=== PATIENT | female | born 2005 | race Two or more races ===

== ENCOUNTER 2025-10-05 09:37 | Emergency (ER) | payer MEDICAID, OTHER ==
[~2025-10-05] VITALS: Ht 170.2 cm; Wt 62.0 kg
--- NOTE | 2025-10-05 09:50 | ED.PDOC ---
Altered Mental Status HPI Comments 20-year-old female presents to the ED status post syncopal episode today. Patient was labor and delivery working, became nauseous and lost consciousness with positive head injury. Patient was assisted up by coworkers. Once patient regained consciousness, she denied any nausea, vomiting, fever, chills, or possible . There was no neck, back, or other extremity tenderness. Patient has full range of motion on all extremities. Chief Complaint: Syncope Time Seen by MD: 09:49 Reviewed Notes: Nurses Notes, Medications, Allergies Allergies: Coded Allergies: NO KNOWN ALLERGIES (Unverified , 10/05/25) Information Source: Patient Mode of Arrival: Wheelchair Severity: Moderate Timing: Minutes Duration: Since onset Quality: Decreased Alertness, Change in Behavior Recent: Nausea History of: None Associated Signs and Symptoms: None Past Medical History PAST MEDICAL HISTORY: Denies Surgical History: Denies all surgeries LEAD MACHINIST History: No Pertinent LEAD MACHINIST History Family History Family History: Reviewed,noncontributory to illness, No family hx of Cancer, No family hx of DM, No family hx of Heart taz, No family hx of HTN, No family hx ofKidney taz, No family hx of Liver taz, No family hx of Lung taz, No family hx of Stroke Social History Smoker: Non-Smoker Alcohol: Denies ETOH Use Drugs: Denies Drug Use Lives In: Home Constitutional: denies: chills, diaphoresis, fatigue, fever, malaise, sweats, weakness, others EENTM: denies: blurred vision, double vision, ear bleeding, ear discharge, ear drainage, ear pain, ear ringing, eye pain, eye redness, hearing loss, mouth pain, mouth swelling, nasal discharge, nose bleeding, nose congestion, nose pain, photophobia, tearing, throat pain, throat swelling, voice changes, others Respiratory: denies: cough, hemoptysis, orthopnea, SOB at rest, shortness of breath, SOB with excertion, stridor, wheezing, others Cardiovascular: reports: syncope; denies: chest pain, dizzy spells, diaphoresis, Dyspnea on exertion, edema, irregular heart beat, left arm pain, lightheadedness, palpitations, PND, others Gastrointestinal: reports: nausea; denies: abdomen distended, abdominal pain, blood streaked bowels, constipated, diarrhea, dysphagia, difficulty swallowing, hematemesis, melena, poor appetite, poor fluid intake, rectal bleeding, rectal pain, vomiting, others Genitourinary: denies: abnormal vagina bleeding, burning, dyspareunia, dysuria, flank pain, frequency, hematuria, incontinence, pain, , vagina discharge, urgency, others Neurological: denies: dizziness, fainting, headache, left sided numbness, left sided weakness, numbness, paresthesia, pre-existing deficit, right sided numbness, right sided weakness, seizure, speech problems, tingling, tremors, weakness, others Musculoskeletal: denies: back pain, gout, joint pain, joint swelling, muscle pain, muscle stiffness, neck pain, others Integumetry: denies: bruises, change in color, change in hair/nails, dryness, laceration, lesions, lumps, rash, wounds, others Allergic/Immunocompromised: denies: Difficulty Healing, Frequent Infections, Hives, Itching, others Hematologic/Lymphatic: denies: anemia, blood clots, easy bleeding, easy bruising, swollen glands, others Endocrine: denies: excessive hunger, excessive sweating, excessive thirst, excessive urination, flushing, intolerance to cold, intolerance to heat, unexp lained weight gain, unexplained weight loss, others Psychiatric: denies: anxiety, bipolar disorder, depression, hopeless, panic disorder, schizophrenia, sleepless, suicidal, others All Other Systems: Reviewed and Negative Physical Exam General Appearance: Moderate Distress HEENT: Normal ENT Inspection, Pharynx Normal, TMs Normal Neck: Full Range of Motion, Non-Tender, Normal, Normal Inspection Respiratory: Chest Non-Tender, Lungs Clear, No Accessory Muscle Use, No Respiratory Distress, Normal Breath Sounds Cardiovascular: No Edema, No JVD, No Murmur, No Gallop, Normal Peripheral Pulses, Regular Rate/Rhythm Breast Exam: Deferred Gastrointestinal: No Organomegaly, Non Tender, No Pulsatile Mass, Normal Bowel Sounds, Soft Genitalia: Deferred Pelvic: Deferred Rectal: Deferred Extremities: No calf tenderness, Normal capillary refill, Normal inspection, Normal range of motion, Non-tender, No pedal edema Musculoskeletal : Apperance: Normal Neurologic: Alert, director apparel II-XII nml as Tested, No Motor Deficits, Normal Affect, Normal Mood, No Sensory Deficits Cerebellar Function: Normal Reflexes: Normal Skin: Dry, Normal Color, Warm Peripheral Pulses: 3+ Radial (R), 3+ Radial (L) Lymphatic: No Adenopathy Was a procedure done? Was a procedure done?: No Differential Diagnosis (ALOC) Differential Diagnosis: Dehydration, Hypoxemia, Closed Head Injury X-Ray, Labs, Meds, VS Vital Signs Date Time Temp Pulse Resp B/P (MAP) Pulse Ox O2 Delivery O2 Flow Rate FiO2 10/05/25 11:57 78 16 114/63 (80) 99 10/05/25 10:08 97.9 85 17 133/82 (99) 97 97.9 10/05/25 10:08 85 17 97 Room Air 10/05/25 09:52 83 10/05/25 09:39 98.2 80 18 137/95 100 98.2 Lab Test 10/05/25 10:51 10/05/25 10:06 Range/Units Urine Color Yellow Yellow Urine Clarity Clear Clear Urine pH 6.0 5.0-9.0 Urine Specific [place] 1.029 1.001-1.035 Urine Protein Trace H Negative Urine Ketones Negative Negative Urine Blood Negative Negative /uL Urine Nitrite Negative Negative Urine Bilirubin Negative Negative Urine Urobilinogen 2 H Negative mg/dL Urine Leukocyte Esterase Negative Negative /uL Urine RBC 4 0 - 4 /hpf Urine Microscopic WBC 3 0-5 /HPF Urine Squamous Epithelial Cells Few <5 /hpf Urine Bacteria None seen None Seen /hpf Urine Mucus Few None Seen Urine Glucose Normal Normal mg/dL Urine Test Negative Negative White Blood Count 5.2 4.4-10.8 10^3/uL Red Blood Count 4.70 4.0-5.20 10^6/uL Hemoglobin 13.7 12.2-16.2 g/dL Hematocrit 39.9 36.0-46.0 % Mean Corpuscular Volume 84.9 80.0-100.0 fL Mean Corpuscular Hemoglobin 29.1 28.0-32.0 pg Mean Corpuscular Hemoglobin Concent 34.3 32.0-36.0 g/dL Red Cell Distribution Width 14.0 11.8-14.3 % Platelet Count 419 140-450 10^3/uL Mean Platelet Volume 7.3 6.9-10.8 fL Neutrophils (%) (Auto) 53.8 37.0-80.0 % Lymphocytes (%) (Auto) 37.2 10.0-50.0 % Monocytes (%) (Auto) 6.2 0.0-12.0 % Eosinophils (%) (Auto) 1.7 0.0-7.0 % Basophils (%) (Auto) 1.1 0.0-2.0 % Neutrophils # (Auto) 2.8 1.6-8.6 10 ^3/uL Lymphocytes # (Auto) 1.9 0.4-5.4 10 ^3/uL Monocytes # (Auto) 0.3 0-1.3 10 ^3/uL Eosinophils # (Auto) 0.1 0-0.8 10 ^3/uL Basophils # (Auto) 0.1 0-0.2 10 ^3/uL Nucleated Red Blood Cells 0.1 % Sodium Level 140 136-145 mmol/L Potassium Level 3.5 3.5-5.1 mmol/L Chloride Level 104 98-107 mmol/L Carbon Dioxide Level 27 20-31 mmol/L Anion Gap 9 5-15 Blood Urea Nitrogen 15 9-23 mg/dL Creatinine 0.77 0.550-1.02 mg/dL Glomerular Filtration Rate Calc 112 >90 mL/min BUN/Creatinine Ratio 19.5 10.0-20.0 Serum Glucose 116 H 74-106 mg/dL Calcium Level 10.0 8.7-10.4 mg/dL Troponin I High Sensitivity < 3 L </=34 ng/L Current Medications Medications (Trade) Dose Ordered Sig/Foster Route Start Time Stop Time Status Last Admin Sodium Chloride 1,000 ml @ 1,000 mls/hr Q1H ONCE IV 10/05/25 10:00 10/05/25 10:59 DC 10/05/25 10:26 Patient alert. Syncopal episode. Hit her head against the bed. Vitals stable. No sign of any injury. Possible vasovagal syncope pain Cardiac marker within normal limits. Establish intravenous access. Was given fluids. Establish intravenous access. Hemoglobin within normal limits. CT scan of the head reviewed does not show any acute changes. CT scan of the cervical spine does not show any acute changes. Explained to the patient that she will need follow up for a cervical spine there is a small lesion that needs to be further worked up with possible bone scan. Was told to follow up with her primary care physician. Was told to come back if there is any problem. Time of 1ST Reevaluation: 09:50 Reevaluation 1ST: Unchanged Patient Education/Counseling: Diagnosis, Treatment, Prognosis Family Education/Counseling: No Family Present SEPSIS Sepsis Screen Date sepsis recognized/suspect: Oct 05, 2025 Time Sepsis recognized/suspect: 940 Recent Procedure: No On Antibiotic Therapy: No Respiratory Rate >20: No Heart Rate >90: No Temp<36 C (96.8 F) or >38.3 C: No SBP <90 or MAP <65 mmHG: No New Acute Mental Status Change: No Is the patient on CPAP, BIPAP,: No Physician Orders Head Without Contrast (10/05/25 09:55) Cervical Without Contrast (10/05/25 09:55) Electrocardigram (10/05/25 09:58) Vital Signs Date Time Temp Pulse Resp B/P (MAP) Pulse Ox O2 Delivery O2 Flow Rate FiO2 10/05/25 11:57 78 16 114/63 (80) 99 10/05/25 10:08 97.9 85 17 133/82 (99) 97 97.9 10/05/25 10:08 85 17 97 Room Air 10/05/25 09:52 83 10/05/25 09:39 98.2 80 18 137/95 100 98.2 Laboratory Tests Test 10/05/25 10:06 White Blood Count 5.2 10^3/uL (4.4-10.8) Medications Medications Dose Ordered Sig/Foster Route Start Time Stop Time Status Last Admin Dose Admin Sodium Chloride 1,000 ml @ 1,000 mls/hr Q1H ONCE IV 10/05/25 10:00 10/05/25 10:59 DC 10/05/25 10:26 Departure 1 Departure Time of Disposition: 11:02 Impression: Primary Impression: Vasovagal syncope Disposition: 01 HOME / SELF CARE / HOMELESS Condition: Good Discharged With: Self Critical Care Note Critical Care Time?: No Stability Stability form required: No I personally scribed for JOANNE MURPHY MD ([email or web address]) on 10/05/25 at 09:50. Electronically submitted by Zamzam Bates ([facility]). JOANNE MURPHY MD Oct 05, 2025 09:50
[2025-10-05 10:08] VITALS: TEMP 97.9
[2025-10-05 10:18] LABS: Hematocrit 39.9 % (36.0-46.0); Hemoglobin 13.7 g/dL (12.2-16.2); Mean Corpuscular Hemoglobin 29.1 pg (28.0-32.0); Mean Corpuscular Volume 84.9 fL (80.0-100.0); Nucleated Red Blood Cells % 0.1 %
[2025-10-05 10:22] LABS: Chloride 104 mmol/L (98-107); Potassium 3.5 mmol/L (3.5-5.1); Sodium 140 mmol/L (136-145)
[2025-10-05 10:23] LABS: Anion Gap 9 (5-15); Calcium 10.0 mg/dL (8.7-10.4); Carbon Dioxide 27 mmol/L (20-31)
[2025-10-05] MEDS: SODIUM CHLORIDE 0.9% 1,000 ML IV ONE (10:26)
[2025-10-05 10:28] LABS: BUN/Creatinine Ratio 19.5 (10.0-20.0); Blood Urea Nitrogen 15 mg/dL (9-23); Glucose 116 mg/dL (74-106)
[2025-10-05 11:00] LABS: Urine Protein, UAD TRACE (Negative)
[2025-10-05 11:57] VITALS: BP 114/63; PULSE 78; RESP 16; O2SAT 99
--- NOTE | 2025-10-05 12:07 | DVH ---
CT HEAD WITHOUT CONTRAST INDICATION: syncope EXAM DATE: 10/05/2025 11:41 AM COMPARISON: None TECHNIQUE: CT of the head without intravenous contrast. RADIATION DOSE: CTDIvol: 56.63 mGy, DLP: 1002.73 mGy*cm FINDINGS: There is no intracranial hemorrhage. There is no extra-axial fluid, mass, mass effect or midline shift. The ventricles are midline and normal in size. Basilar cisterns are patent. Link-white differentiation is maintained. The paranasal sinuses and mastoids are well-pneumatized. Imaged portion of the orbits are unremarkable. IMPRESSION: No intracranial hemorrhage or mass effect.
--- NOTE | 2025-10-05 12:30 | DVH ---
INDICATION: fall TECHNIQUE: CT axial images of the cervical spine are obtained without contrast. Coronal and sagittal reformats were obtained. Radiation Dose Information: CTDI volume is 21.16 mGy. Dose-length product is 461.26 mGy*cm COMPARISON: None FINDINGS: The cervical vertebral body heights are maintained. Cervical alignment is maintained. There is no significant disc space narrowing. No prevertebral edema. Facet articulations are in tact. . The atlantooccipital, atlantoaxial articulations are intact. 4 mm sclerotic lesion at C3 IMPRESSION: Negative CT of the cervical spine for acute osseous abnormality. Sclerotic lesion at C3 measuring 4 mm. Differential considerations include bone island, bone infarct, osteoblastic metastases. Correlate with clinical history and risk factors.
--- NOTE | 2025-10-05 19:56 | ECG ---
[facility] Test Date: 2025-10-05 Test Time: 09:52:48 Pat Name: CHRIS BENAVIDEZ Department: Room: Gender: F Spd Tech: BRANDI : 2005 Requested By: JOANNE MURPHY Order Number: [id number] Reading MD: Measurements Intervals [place] Rate: 83 P: 74 CO: 160 QRS: 64 QRSD: 88 T: 32 QT: 339 QTc: 399 Interpretive Statements Sinus rhythm Please click the below link to view image of tracing.
== END 2025-10-05 13:06 | disposition home or self-care (01) ==
LOC: ER 09:37
DX: R55 Syncope and collapse (principal); Z79.899 Other long term (current) drug therapy
CPT/HCPCS: 36415; 70450; 72125; 80048; 81001; 81025; 82947; 84484; 85025; 93005; 96360; 99284; J7030